=== PATIENT | male | born 1955 | race Caucasian/White ===

== ENCOUNTER 2019-12-26 12:42 | Outpatient (CLI) | payer MEDICARE, OTHER, SELFPAY ==
--- NOTE | ~2019-12-26 | XR_ITS ---
XR abdomen/kub 1V DATE: 12/26/2019 13:08 INDICATION: Kidney calculus follow up TECHNIQUE: AP projection, 2 views COMPARISON: 09/29/2015 KUB FINDINGS: Bilateral internal urinary stents are present. A faint approximately 5 mm calcification overlies the right renal hilum. Contiguous approximately 7 m m in 12 mm calcified calculi overlying the lower pole of the left kidney. Faint approximately 7 mm ca lcification overlies the upper pole of the left kidney. No obvious calcified ureteral calculus is noted. The psoas shadows are intact. No visceromegaly is evident. No evidence of bowel obstruction. There is extensive abdominal aortic as well as iliac arterial calcification. IMPRESSION: Bilateral internal urinary stent since suggestion of bilateral nephrolithiasis; noncontra st CT abdomen pelvis would be more definitive for detection of urinary tract calculi. Reviewed, dictated and finalized at [facility]. Reviewed, dictated and finalized at location B. IMPRESSION: Bilateral internal urinary stent since suggestion of bilateral neph rolithiasis; noncontrast CT abdomen pelvis would be more definitive for detecti on of urinary tract calculi.
== END 2019-12-26 12:43 | disposition home or self-care (01) ==
PROVIDERS: PCP Urology; Visit Provider Urology
DX: N20.0 Calculus of kidney (principal)
CPT/HCPCS: 74018

== ENCOUNTER 2020-01-08 00:40 | Outpatient (CLI) | payer MEDICARE, OTHER, SELFPAY ==
[2020-01-08 18:39] LABS: SARS-CoV-2 RNA PCR Negative
== END 2020-01-08 00:41 | disposition home or self-care (01) ==
LOC: ANHCOVIDDT 00:40
PROVIDERS: Visit Provider Urology
DX: Z01.812 Encounter for preprocedural laboratory examination (principal); Z20.828 Contact with and (suspected) exposure to other viral communicable diseases
CPT/HCPCS: 87635; C9803; U0003

== ENCOUNTER 2020-01-10 01:49 | Day surgery (SDC) | payer MEDICARE, OTHER, SELFPAY ==
[2020-01-01 13:26] VITALS: BMI 29.5
[2020-01-10] VITALS (8 sets, daily range): BP systolic 120–153; BP diastolic 68–95; PULSE 40–78; RESP 14–16; TEMP 36.2–36.7; O2SAT 98
--- NOTE | ~2020-01-10 | XR_ITS ---
EXAMINATION: XR abdomen/kub 1V DATE: 01/10/2020 06:22 INDICATION: Renal stone. TECHNIQUE: A supine view of the abdomen on 2 radiographs was obtained. COMPARISON: Abdomen radiographs 12/26/2019, 10/09/2015 FINDINGS: There is a right internal ureteral stent in expected position. There is a 5 mm stone in rig ht kidney lower pole. There is a left internal ureteral stent in expected position. There are least 3 stones in left kidney measuring up to 12 mm. There are phleboliths in the pelvis. IMPRESSION: 1. Stones in the kidneys. 2. Bilateral internal ureteral stents in expected positions. Reviewed, dictated and finalized at location A.
[2020-01-10] MEDS: LACTATED RINGERS 1,000 ML 30 ML IV CONT ×2 (06:35→08:57)
--- NOTE | 2020-01-10 07:03 | WPDANESEPPF ---
Anes - Initial Pre Proc Eval Procedure: Operation Date: 01/10/20 07:30 Proposed Procedures p Left Renal Extracorporeal Shock Wave Lithotripsy, - Koffi Montilla MD s Cystoscopy, Right Ureteroscopy, Right Retrograde Pyelogram, Possible Right Stone Extraction, Possible Right Stent Placement - Koffi Montilla MD s Possible Holmium Laser Procedure - Koffi Montilla MD Date/Time: 01/10/20 07:03 Surgeon: Koffi Montilla MD Pre Op Diagnosis: bilat renal stones Patient Data Age: 64 Gender: M Height: 6 ft 2 in Weight: 106.3 kg Last Vital Signs Temp 36.7 C 01/10/20 06:52 Pulse 57 L 01/10/20 06:52 Resp 16 01/10/20 06:52 BP 153/86 H 01/10/20 06:52 Pulse Ox 98 01/10/20 06:52 Allergies Allergy/AdvReac Type Severity Reaction Status Date / Time YOMI Inhibitors Allergy Unknown Sneezing Verified 01/10/20 06:26 Home Medications Medication Instructions Recorded Confirmed Type amlodipine 10 mg PO QAM 01/01/20 01/10/20 History pktjsov-wqllkybydazot-rxkexpxb 2 tablet PO Q4-6H PRN 01/01/20 01/01/20 History [Excedrin Migraine] cholecalciferol (vitamin D3) 25 mcg PO DAILY 01/01/20 01/10/20 History esomeprazole magnesium [Nexium] 20 mg PO PRN PRN 01/01/20 01/10/20 History metoprolol tartrate 50 mg PO QAM 01/01/20 01/10/20 History tamsulosin 0.4 mg PO DAILY 01/10/20 01/10/20 History Patient hx anesthesia problems: none Family hx anesthesia problems: none PMFSH Past Medical History Medical History GERD (gastroesophageal reflux disease) Hypertension ALEX (obstructive sleep apnea) Social History Social History Smoking status: Never smoker Living arrangements: with family Spiritual care concerns: No Anes - Eval Final PreProcedure Day of Procedure 01/10/20 07:03 Patient weight: obese Heart: regular rate and rhythm Lungs: clear to auscultation Airway: Mallampati scale class II Neurological: alert and oriented Last oral intake: >/= 8 hours ASA classification: III Emergent: no Anesthetic plan: proceed Anesthesia type and monitoring: general LMA and standard monitoring Informed Consent: The patient's anesthetic plan and its attendant risks and benefits were discussed with the patient/family/POA. Questions were solicited and answers provided to the satisfaction of the patient/family/POA.
--- NOTE | 2020-01-10 07:15 | WPDHPUPDATE1 ---
History and Physical Update Update Date/Time: 01/10/20 07:15 History and Physical has been reviewed, including an updated exam of the patient. There are NO changes in the patient's condition. Risks, benefits, and alternatives have been discussed and questions answered. Patient agrees to proceed with procedure. Proceed with cysto, right ureteroscopy. right rpg, stone extraction possible laser and left renal eswl
[2020-01-10] MEDS: ceFAZolin 2 GM/D5W 50 ML 2 GM/50 ML BAG IVPB (07:26)
[2020-01-10] MEDS: LIDOCAINE HCL 2% GEL UROJET 10 ML PKG MUCOUS MEM (07:47)
--- NOTE | 2020-01-10 08:56 | P.OP_ITS ---
Procedure Note - Detailed Date of procedure: 01/10/20 Pre-op diagnosis: bilat renal stones Post-op diagnosis: same Procedure performed: Cystoscopy, right retrograde pyelogram, right ureteroscopy with stone extraction, right ureteral stent exchange, left renal ESWL Description of procedure: Patient is taken to the operative suite and correctly identified. Once anesthesia was obtained he was prepped and draped usual sterile fashion. Flexible cystoscope was inserted into the bladder. The right ureteral stent was visualized grasped with a grasper and brought out the meatus. A Glidewire was passed through the stent up in the renal pelvis. A mini flexible ureteral scope was then inserted into the ureter and passed all the way up to the kidney. The kidney was inspected in its entirety. There was a stone noted that was in the lower pole which was under a lip of a calyx. Using a 0 degree basket we were able to retrieve in sent for analysis. Pyelogram was then performed to confirm placement of the stent through the ureteral scope. 4.8 Kinyarwanda stent was then placed with the proximal end coiled in the renal pelvis and the distal end in the bladder. 2% viscous lidocaine was inserted urethra. Patient was then repositioned to visualize the left lower pole stone. It measured at least 1 cm. He has 2 stones in the lower pole with concentrated on the most lateral stone. Two thousand five hundred shocks were given to the ston e. He tolerated procedure well without any complications and was taken recovery room stable condition. He will follow up in about 10 days with a KUB. Anesthesia: GLMA Surgeon: Koffi Montilla MD Drains: Yes Packing: No Pathology: yes Complications: No immediate complications Condition: stable Disposition: PACU
== END 2020-01-10 11:03 | disposition home or self-care (01) ==
PROVIDERS: Visit Provider Urology
PROC: (CPT 50590; principal; 2020-01-10 07:30)
PROC: (CPT 52352; 2020-01-10 07:30)
DX: N20.0 Calculus of kidney (principal); I10 Essential (primary) hypertension; K21.9 Gastro-esophageal reflux disease without esophagitis; G47.33 Obstructive sleep apnea (adult) (pediatric); E66.9 Obesity, unspecified; Z68.30 Body mass index [BMI] 30.0-30.9, adult
CPT/HCPCS: 52332; 50590; 52352; 74018; 82365; 88300; A9270; C1769; C1887; C2617; J0690; J1100; J2250; J2405; J2704; J3010; J7030; J7120; Q9966

== ENCOUNTER 2020-01-22 08:26 | Outpatient (CLI) | payer MEDICARE, OTHER, SELFPAY ==
--- NOTE | ~2020-01-22 | XR_ITS ---
XR abdomen/kub 1V 01/22/2020 08:37 Indication: Renal stones. Procedure: KUB Comparison: 01/10/2020 Findings: There are bilateral internal ureteral stents, position unchanged. There are multiple left r enal stones in the lower pole. There are possible distal right ureteral stones adjacent to the stent at the sacral level. Bowel gas pattern nonobstructive. Impression: 1: Left renal and possible distal right ureteral stones. Stable position to bilateral internal ureter al stents. Reviewed, dictated and finalized at location A. Impression: 1: Left renal and possible distal right ureteral stones. Stable position to shruthi ateral internal ureteral stents.
== END 2020-01-22 08:27 | disposition home or self-care (01) ==
LOC: ANHIMG 08:31
PROVIDERS: Visit Provider Urology
DX: N20.0 Calculus of kidney (principal); N20.1 Calculus of ureter; Z96.0 Presence of urogenital implants
CPT/HCPCS: 74018

== ENCOUNTER 2020-02-03 09:46 | Outpatient (CLI) | payer MEDICARE, OTHER, SELFPAY ==
--- NOTE | ~2020-02-03 | XR_ITS ---
EXAMINATION: XR abdomen/kub 1V DATE: 02/03/2020 10:10 INDICATION: Calculus of kidney. TECHNIQUE: A supine view of the abdomen on 2 radiographs was obtained. COMPARISON: Abdomen radiographs 01/22/2020, abdomen radiograph/05/12 FINDINGS: There are bilateral internal ureteral stents in expected positions. There are phleboliths i n the pelvis. There are multiple small stones in distal right ureter. There are greater than 10 stone s in left kidney measuring up to 13 mm. IMPRESSION: 1. Left kidney stones. 2. Stones in distal right ureter. 3. Bilateral internal ureteral stent in expected positions. Reviewed, dictated and finalized at location B. KER LAYER
== END 2020-02-03 09:47 | disposition home or self-care (01) ==
PROVIDERS: Visit Provider Urology
DX: N20.2 Calculus of kidney with calculus of ureter (principal); Z96.0 Presence of urogenital implants; I87.8 Other specified disorders of veins
CPT/HCPCS: 74018

== ENCOUNTER 2020-03-03 00:31 | Outpatient (CLI) | payer MEDICARE, OTHER, SELFPAY ==
[2020-03-03 18:51] LABS: SARS-CoV-2 RNA PCR Negative
== END 2020-03-03 00:32 | disposition home or self-care (01) ==
LOC: ANHCOVIDDT 00:32
PROVIDERS: Visit Provider Urology
DX: Z01.812 Encounter for preprocedural laboratory examination (principal); Z20.828 Contact with and (suspected) exposure to other viral communicable diseases
CPT/HCPCS: 87635; C9803; U0003

== ENCOUNTER 2020-03-06 00:59 | Day surgery (SDC) | payer MEDICARE, OTHER, SELFPAY ==
[2020-03-03 12:52] VITALS: BMI 30.2
--- NOTE | ~2020-03-06 | XR_ITS ---
EXAMINATION: XR abdomen/kub 1V DATE: 03/06/2020 08:41 INDICATION: Renal stone. TECHNIQUE: A supine view of the abdomen was obtained. COMPARISON: Abdomen radiograph 02/03/2020 FINDINGS: There are no dilated loops of bowel. There are bilateral internal ureteral stents in expect ed positions. There are phleboliths in the pelvis. There is a cluster of greater than 10 stones in le ft kidney lower pole measuring up to 12 mm. There are small stones in distal right ureter. IMPRESSION: 1. Left kidney stones. 2. Stones in distal right ureter. 3. Bilateral internal ureteral stents in expected positions. Reviewed, dictated and finalized at location B. MONIA DISTILLER
[2020-03-06] MEDS: LACTATED RINGERS 1,000 ML 30 ML IV CONT (09:20)
[2020-03-06 09:28] VITALS: BP 162/91; PULSE 55; RESP 18; TEMP 36.6; O2SAT 100; BMI 30.4
--- NOTE | 2020-03-06 09:31 | SUR.PREOP ---
PT REQUESTS NO PHONE CALLS TO [facility]. DR BARNES NOTIFIED
--- NOTE | 2020-03-06 09:46 | WPDANESEPPF ---
Anes - Initial Pre Proc Eval Procedure: Operation Date: 03/06/20 10:30 Proposed Procedures p Left Renal Extracorporeal Shock Wave Lithotripsy, - Koffi Montilla MD s Possible Right Ureteroscopy with Stone Extraction, Right Stent Removal, Right Stent Placement - Koffi Montilla MD Date/Time: 03/06/20 09:46 Surgeon: Koffi Montilla MD Pre Op Diagnosis: left renal and right ureteral stones Patient Data Age: 64 Gender: M Height: 1.88 m Weight: 107.6 kg Last Vital Signs Temp 36.6 C 03/06/20 09:28 Pulse 55 L 03/06/20 09:28 Resp 18 03/06/20 09:28 BP 162/91 H 03/06/20 09:28 Pulse Ox 100 03/06/20 09:28 Allergies Allergy/AdvReac Type Severity Reaction Status Date / Time YOMI Inhibitors Allergy Unknown Sneezing Verified 03/06/20 09:04 cephalexin [From Keflex] AdvReac Mild Diarrhea Verified 03/06/20 09:05 Home Medications Medication Instructions Recorded Confirmed Type Excedrin Migraine 2 tablet PO Q4-6H PRN 01/01/20 03/06/20 History amlodipine 10 mg PO QAM 01/01/20 03/06/20 History cholecalciferol (vitamin D3) 25 mcg PO DAILY 01/01/20 03/06/20 History esomeprazole magnesium [Nexium] 20 mg PO PRN PRN 01/01/20 03/06/20 History metoprolol tartrate 50 mg PO QAM 01/01/20 03/06/20 History tamsulosin 0.4 mg PO DAILY 01/10/20 03/06/20 History Patient hx anesthesia problems: none Family hx anesthesia problems: none PMFSH Past Medical History Medical History (Updated 03/06/20 @ 09:47 by Israel Wilson MD) GERD (gastroesophageal reflux disease) Hypertension Obesity ALEX (obstructive sleep apnea) Social History Social History Smoking status: Never smoker Second hand tobacco smoke exposure: No Substance use type: does not use Living arrangements: with family Spiritual care concerns: No Anes - Eval Final PreProcedure Day of Procedure 03/06/20 09:46 Patient weight: obese Heart: regular rate and rhythm Lungs: clear to auscultation and normal air movement Airway: Mallampati scale class II Neurological: alert and oriented Last oral intake: >/= 8 hours ASA classification: III Emergent: no Anesthetic plan: proceed Anesthesia type and monitoring: general LMA Informed Consent: The patient's anesthetic plan and its attendant risks and benefits were discussed with the patient/family/POA. Questions were solicited and answers provided to the satisfaction of the patient/family/POA.
--- NOTE | 2020-03-06 10:23 | WPDHPUPDATE1 ---
History and Physical Update Update Date/Time: 03/06/20 10:23 History and Physical has been reviewed, including an updated exam of the patient. There are NO changes in the patient's condition. Risks, benefits, and alternatives have been discussed and questions answered. Patient agrees to proceed with procedure. Proceed with cysto , right stent removal, right ureteroscopy, left renal eswl.
[2020-03-06] MEDS: ceFAZolin 2 GM/D5W 50 ML 2 GM/50 ML BAG IVPB (10:49)
--- NOTE | 2020-03-06 11:26 | SUR.OPER ---
Left Ureteral Stent 4.8Fr Contour Lot [id number], Exp 2022-12-18
--- NOTE | 2020-03-06 11:34 | P.OP_ITS ---
Procedure Note - Detailed Date of procedure: 03/06/20 Pre-op diagnosis: left renal and right ureteral stones Post-op diagnosis: same Procedure performed: Cystoscopy, right ureteral stent removal, right ureteroscopy, left ureteral stent exchange, left renal lithotripsy Description of procedure: patient is taken the operative suite and correctly identified. Once anesthesia was obtained he was placed in the supine position prepped draped usual sterile fashion. Sixteen Italian flexible scope inserted into the urethra. The right ureteral stent was visualized and brought out to the meatus. We could not pass a guidewire through the stent due to calcification. We thus placed a guidewire into the right ureteral orifice. We passed a flexible ureteral scope over the guidewire. The ureter was inspected in its entirety. There are no residual ureteral stones noted at this time. Inspection of the left ureteral stent revealed calcifications on it. We decided to test exchanged this to prevent further issues. Passed a wire alongside the stent. We then grasped the stent removed it. A 4.8 Italian contour stent was then placed with the proximal end coiled in the renal pelvis and the distal in the bladder. we then localized the left renal stone in both planes. Two thousand five hundred shocks were given to the stone. There appeared to be fairly good fragmentation. Patient is taken recovery room stable condition. He will follow up in about 10-14 days with a KUB. Anesthesia: GLMA Surgeon: Koffi Montilla MD Drains: Yes Packing: No Pathology: none sent Complications: No immediate complications Condition: stable Disposition: PACU
[2020-03-06 11:44] VITALS: BP 135/85; PULSE 73; RESP 12; TEMP 36.9; O2SAT 97
[2020-03-06 11:55] VITALS: BP 135/84; PULSE 62; RESP 12; O2SAT 100
[2020-03-06 12:10] VITALS: BP 142/91; PULSE 64; RESP 12; O2SAT 100
[2020-03-06 12:21] VITALS: BP 142/90; BP 152/97; PULSE 63; PULSE 66; RESP 13; RESP 16; O2SAT 95
--- NOTE | 2020-03-06 12:42 | SUR.PHASEII ---
1235-pt voided 100 ml of red colored urine without difficulty.
[2020-03-06 12:50] VITALS: BP 138/83; PULSE 59; RESP 16
== END 2020-03-06 13:08 | disposition home or self-care (01) ==
PROVIDERS: Visit Provider Urology
PROC: (CPT 50590; principal; 2020-03-06 10:30)
PROC: (CPT 52352; 2020-03-06 10:30)
DX: N20.0 Calculus of kidney (principal); K21.9 Gastro-esophageal reflux disease without esophagitis; I10 Essential (primary) hypertension; E66.9 Obesity, unspecified; Z68.30 Body mass index [BMI] 30.0-30.9, adult; G47.33 Obstructive sleep apnea (adult) (pediatric)
CPT/HCPCS: 52332; 50590; 74018; A9270; C1769; C2617; J0690; J1100; J2250; J2405; J2704; J3010; J7030; J7120

== ENCOUNTER 2020-03-16 10:39 | Outpatient (CLI) | payer MEDICARE, OTHER, SELFPAY ==
--- NOTE | ~2020-03-16 | XR_ITS ---
EXAMINATION: XR abdomen/kub 1V INDICATION: Calculus of the kidney TECHNIQUE: Supine views of the abdomen were obtained on 2 radiographs. COMPARISON: 03/06/2020 FINDINGS: A right internal ureteral catheter has been removed. A left internal ureteral catheter is i n position. Multiple stones and stone fragments are seen in the left kidney lower pole which have dec reased in density since the prior examination. Tiny stone fragments are also seen near the coiled por tion of the internal ureteral stent in the left renal pelvis. No definite stones are identified along the left ureteral stent. The bowel gas pattern is normal. There are multiple phleboliths of the pelv is. There is mild lumbar spondylosis. IMPRESSION: 1. Left internal ureteral stent in expected position with stones in the left kidney lower pole and ad jacent to the coiled portion of the stent in the left renal pelvis. 2. Interval right internal ureteral stent removal. Reviewed, dictated and finalized at location A. CTOR OF COMMUNITY EDUCATION IMPRESSION: 1. Left internal ureteral stent in expected position with stones in the left ki dney lower pole and adjacent to the coiled portion of the stent in the left dread al pelvis. 2. Interval right internal ureteral stent removal.
== END 2020-03-16 10:40 | disposition home or self-care (01) ==
LOC: ANHIMG 10:45
PROVIDERS: Visit Provider Urology
DX: N20.0 Calculus of kidney (principal)
CPT/HCPCS: 74018

== ENCOUNTER 2020-04-13 11:02 | Outpatient (CLI) | payer MEDICARE, OTHER, SELFPAY ==
--- NOTE | ~2020-04-13 | XR_ITS ---
EXAMINATION: XR abdomen/kub 1V EXAM DATE: 04/13/2020 11:16 INDICATION: Kidney stones, stent. TECHNIQUE: Frontal projection(s) of the abdomen for interpretation. Comparison is made to prior exami nation from 03/16/2020. FINDINGS: There is a left-sided double-J ureteral stent. Multiple left calyceal stone fragments. No d efinite stone fragments seen along the course of the ureteral stent. Calcifications in the pelvis are believed to be phleboliths. There are mild bony degenerative changes. Nonobstructive bowel gas patte rn. IMPRESSION: Left calyceal stone fragments, ureteral stent in position. Reviewed, dictated and finalized at location A. EL DRAGLINE OPERATOR
== END 2020-04-13 11:03 | disposition home or self-care (01) ==
LOC: ANHIMG 11:08
PROVIDERS: Visit Provider Urology
DX: N20.0 Calculus of kidney (principal)
CPT/HCPCS: 74018

== ENCOUNTER 2020-05-29 09:48 | Outpatient (CLI) | payer MEDICARE, OTHER, SELFPAY ==
--- NOTE | ~2020-05-29 | US_ITS ---
EXAMINATION: US retroperitoneal comp DATE: 05/29/2020 10:29 INDICATION: Renal calculus TECHNIQUE: Multiple ultrasound grayscale images of the kidneys were obtained. COMPARISON: None. FINDINGS: The right kidney measures 9.7 x 6.3 x 6.1 cm. The left kidney measures 14.1 x 6.9 x 7.6 cm. The kidne ys demonstrate normal echogenicity. 1.4 cm anechoic cyst at the mid left kidney. There is no hydronep hrosis in either kidney. There is a poorly defined echogenic and shadowing stone at the mid left kid rui. The bladder is normal. IMPRESSION: 1. Poorly visualized shadowing stone at the mid left kidney. No hydronephrosis in either kidney. Reviewed, dictated and finalized at location B. T EXPERIENCE SPECIALIST
--- NOTE | ~2020-05-29 | XR_ITS ---
EXAMINATION: XR abdomen/kub 1V EXAM DATE: 05/29/2020 10:04 INDICATION: Kidney stone. TECHNIQUE: Frontal projection(s) of the abdomen for interpretation. Comparison is made to prior exami nation from 04/13/2020. FINDINGS: Previously seen left ureteral stent has been removed. There is some calcifications project ing over left kidney, probably nephrolithiasis. These have been indicated. Nonobstructive bowel gas p attern. Left lower lobe granuloma. IMPRESSION: Left nephrolithiasis. Reviewed, dictated and finalized at location A. LOGY TEACHER IMPRESSION: Left nephrolithiasis.
== END 2020-05-29 09:49 | disposition home or self-care (01) ==
PROVIDERS: Visit Provider Urology
DX: N20.0 Calculus of kidney (principal)
CPT/HCPCS: 74018; 76770